=== PATIENT | female | born 1995 | race Caucasian/White ===

== ENCOUNTER 2016-10-28 17:05 | Emergency (ER) | payer MEDICAID ==
[~2016-10-28] VITALS: Ht 167.6 cm; Wt 130.0 kg
[~2016-10-28 17:05] MED LIST: LORTA5 PO
[2016-10-28 17:06] VITALS: BP 160/91; PULSE 87; RESP 14; TEMP 98.1; O2SAT 96
[2016-10-28] MEDS ORDERED: ALPR.5 PO (19:55)
--- NOTE | 2016-10-28 20:12 | PD ---
HPI Chief Complaint: Cold / Flu Symptoms Time Seen by Provider: 19:45 Travel History International Travel<30 days: No Contact w/Intl Traveler<30days: No Traveled to known affect area: No History of Present Illness HPI 21-year-old female presents for evaluation of cough, congestion, sneezing, myalgias and fevers, sore throat. Symptoms started 5 days ago. Maximum temperature 102.5 degrees at home. She has been using [id number] NSAIDs for symptom relief. She denies any abdominal pain, nausea, vomiting, rash, recent travel, dysuria, flank pain. She notes that she did recently complete treatment for urinary tract infection. She reports that her last menstrual period was 2 days ago. She did receive the influenza vaccination this year. No other complaints. PFSH Past Medical History Hx Anticoagulant Therapy: No Cardiovascular Problems: Yes (SVT, ABLATION, BARRERA PARKIN[place] WHITE) Chemotherapy: No Cerebrovascular Accident: No Diabetes: No Diminished Hearing: No Respiratory: No ?: Not : 1 Para: 1 Past Surgical History Section: Yes Gynecologic Surgery: Yes Other Surgery: Yes (ABATION) Social History Alcohol Use: No Tobacco Use: Yes Substance Use: No Allergies-Medications (Allergen,Severity, Reaction): Coded Allergies: Amoxicillin (Verified Allergy, Severe, hives, swelling, 10/28/16) Bactrim (Verified Allergy, Severe, hives, swelling, 10/28/16) Penicillin (Verified Allergy, Severe, hives, swelling, 10/28/16) Uncoded Allergies: Pcn,Bactruim (Allergy, Intermediate, 05/25/15) Reported Meds & Prescriptions Reported Meds & Active Scripts Active Reported Xanax (Alprazolam) 0.5 Mg Tab 0.5 Mg PO Q4H PRN Review of Systems Except as stated in HPI: all other systems reviewed are Neg Physical Exam Narrative GENERAL: Well-developed well-nourished female in no acute distress SKIN: Warm and dry. HEAD: Atraumatic. Normocephalic. EYES: Pupils equal and round. No scleral icterus. No injection or drainage. ENT: No nasal bleeding or discharge. Mucous membranes pink and moist. No oral pharyngeal erythema or exudate. NECK: Trachea midline. No JVD. No Lymphadenopathy. Neck supple full range of motion. CARDIOVASCULAR: Regular rate and rhythm. No murmur appreciated. RESPIRATORY: No accessory muscle use. Clear to auscultation. Breath sounds equal bilaterally. GASTROINTESTINAL: Abdomen soft, non-tender, nondistended. Hepatic and splenic margins not palpable. No CVA tenderness. MUSCULOSKELETAL: No obvious deformities. No edema. NEUROLOGICAL: Awake and alert. No obvious cranial nerve deficits. Motor grossly within normal limits. Normal speech. Data Data Last Documented VS Vital Signs Date Time Temp Pulse Resp B/P Pulse Ox O2 Delivery O2 Flow Rate FiO2 10/28/16 19:54 87 14 96 Room Air 10/28/16 17:06 98.1 160/91 Orders Influenzae A/B Antigen (10/28/16 19:43) Urinalysis - C+S If Indicated (10/28/16 20:02) Chest, Single Ap (10/28/16 ) Group A Rapid Strep Screen (10/28/16 20:02) Ed Urine Pregnancytest Poc (10/28/16 20:02) Strep Culture (Group A) (10/28/16 20:20) Labs Laboratory Tests Test 10/28/16 20:20 Urine Color YELLOW Urine Turbidity HAZY Urine pH 5.5 Urine Specific [place] 1.016 Urine Protein NEG mg/dL Urine Glucose (UA) NEG mg/dL Urine Ketones NEG mg/dL Urine Occult Blood MOD Urine Nitrite NEG Urine Bilirubin NEG Urine Urobilinogen LESS THAN 2.0 MG/DL Urine Leukocyte Esterase MOD Urine RBC 1 /hpf Urine WBC 5 /hpf Urine Squamous Epithelial 5 /hpf Cells Urine Bacteria RARE /hpf Urine Mucus FEW /lpf Microscopic Urinalysis Comment CULT NOT INDICATED MDM Medical Decision Making Medical Screen Exam Complete: Yes Emergency Medical Condition: Yes Medical Record Reviewed: Yes Interpretation(s) Chest x-ray negative, rapid strep screen negative, influenza antigen negative, urine test negative Urinalysis 5 WBCs, 5 squamous cells, 1 RBC Differential Diagnosis Influenza, sinusitis, pharyngitis, infectious mononucleosis, bronchitis, pneumonia Narrative Course 21-year-old female with 5 days of cough, congestion, sneezing, myalgias, fevers and sore throat. Physical examination is very reassuring. She is not toxic in appearance. She does not appear septic. She is not tachycardic, febrile, hypoxic, tachypneic, altered. Abdomen soft and nontender. She does report that she recently completed treatment for urinary tract infection. We will check rapid strep screen, influenza antigen, chest x-ray, urinalysis. The patient's chest x-ray is negative, influenza antigen is negative, rapid strep screen negative, urinalysis negative. The patient appears to have a viral upper respiratory infection. Supportive care recommended. She is stable for discharge. Diagnosis Primary Impression: Upper respiratory infection Qualified Code: J06.9 - Upper respiratory tract infection, unspecified type Departure Forms: Tests/Procedures, Work Release Enter return to work date: Oct 30, 2016 Additional Instructions: Take Tylenol or Motrin for fever. Stay well hydrated and well-nourished. Follow-up with primary care physician as needed. Return for any emergent medical conditions. Med/Other Pt SpecificInfo: No Change to Meds Disposition: 01 DISCHARGE HOME Condition: Stable Benito Martin Oct 28, 2016 20:12
[2016-10-28 20:34] LABS: BACTERIA, URINE RARE /hpf; BLOOD, URINE MOD (NEG); COMMENT (UR) CULT NOT INDICATED; CULTURE IF INDICATED CULT NOT INDICATED; GLUCOSE,URINE NEG (NEG); KETONE, URINE NEG (NEG); MUCUS URINE FEW /lpf (OCC); NITRITE,URINE NEG (NEG); PH, URINE 5.5 (5.0-8.5); SQUAMOUS EPITHELIAL CELL URINE 5 /hpf (0-5); URINE COLOR YELLOW (YELLW/STRAW)
--- NOTE | 2016-10-28 20:43 | RADRPT ---
EXAM DATE/TIME: 10/28/2016 20:30 [facility] COMPARISON: No previous studies available for comparison. INDICATIONS : Cough and fever. MEDICAL HISTORY : None acutely relevant SURGICAL HISTORY : None. ENCOUNTER: Initial ACUITY: 4 - 6 days PAIN SCORE: 7/10 LOCATION: Bilateral upper chest FINDINGS: A single view of the chest demonstrates the lungs to be symmetrically aerated without evidence of mas s, infiltrate or effusion. The cardiomediastinal contours are unremarkable. Osseous structures are intact. CONCLUSION: No evidence of acute cardiopulmonary disease. Caesar Oliver MD on October 28, 2016 at 20:41 Board Certified Radiologist. This report was verified electronically.
== END 2016-10-28 21:11 | disposition home or self-care (01) ==
LOC: NEPB 17:05
DX: J06.9 Acute upper respiratory infection, unspecified (principal); R05 Cough; M79.1 Myalgia; R50.9 Fever, unspecified; Z72.0 Tobacco use; Z86.79 Personal history of other diseases of the circulatory system
CPT/HCPCS: 71010; 81001; 84703; 87081; 87804; 87880; 99283

== ENCOUNTER 2017-05-11 18:08 | Emergency (ER) | payer OTHER, MEDICAID ==
[~2017-05-11] VITALS: Ht 165.1 cm; Wt 130.0 kg
[~2017-05-11 18:08] MED LIST changes: +ALPR.5 PO; -LORTA5 PO
[2017-05-11 18:09] VITALS: BP 146/88; PULSE 94; RESP 24; TEMP 98.2; O2SAT 100
[2017-05-11] MEDS ORDERED: ULTR50TA5 PO (19:53)
--- NOTE | 2017-05-11 19:53 | PD ---
HPI . Back injury Chief Complaint: Back/ Neck Pain or Injury Time Seen by Provider: 19:46 Travel History International Travel<30 days: No Contact w/Intl Traveler<30days: No Traveled to known affect area: No History of Present Illness HPI This patient presents with a chief complaint of an injury to her left low back. She reports a slip and fall 5 days ago. She states that she landed on her left low back. She reports very little pain at that time. However, she started getting sore 4 hours later. She states that her pain has become gradually worse since that time. She states that she now can't sit, stand or walk because of pain. Pain has been unrelieved by Advil. Pain is constant and is rated 9/10. Patient has no associated neurological symptoms such as bowel or bladder incontinence or leg weakness. PFSH Past Medical History Hx Anticoagulant Therapy: No Cardiovascular Problems: Yes (SVT, ABLATION, BARRERA PARKINSON WHITE) Chemotherapy: No Cerebrovascular Accident: No Diabetes: No Diminished Hearing: No Respiratory: No ?: Not LMP: 05/11/17 : 1 Para: 1 Past Surgical History Section: Yes Gynecologic Surgery: Yes Other Surgery: Yes (ABATION) Social History Alcohol Use: No Tobacco Use: Yes Substance Use: No Allergies-Medications (Allergen,Severity, Reaction): Coded Allergies: Amoxicillin (Verified Allergy, Severe, hives, swelling, 05/11/17) Bactrim (Verified Allergy, Severe, hives, swelling, 05/11/17) Penicillin (Verified Allergy, Severe, hives, swelling, 05/11/17) Uncoded Allergies: Pcn,Bactruim (Allergy, Intermediate, 05/25/15) Reported Meds & Prescriptions Reported Meds & Active Scripts Active Reported Aspirin 81 (Aspirin) 81 Mg Tabdr 81 Mg PO DAILY Xanax (Alprazolam) 0.5 Mg Tab 0.5 Mg PO Q4H PRN Review of Systems Except as stated in HPI: all other systems reviewed are Neg Musculoskeletal: Positive: Pain (left low back pain) Physical Exam Narrative GENERAL: Awake and alert and in no acute distress. SKIN: Warm and dry. No bruising, redness or abrasions. HEAD: Atraumatic. Normocephalic. EYES: Pupils equal and round. NECK: Trachea midline. CARDIOVASCULAR: Regular rate and rhythm. RESPIRATORY: No accessory muscle use. MUSCULOSKELETAL: No obvious deformities. No edema. She is tender in the area of the left posterior iliac crest. NEUROLOGICAL: Awake and alert. No obvious cranial nerve deficits. Motor grossly within normal limits. Normal speech. PSYCHIATRIC: Appropriate mood and affect; insight and judgment normal. Data Data Last Documented VS Vital Signs Date Time Temp Pulse Resp B/P Pulse Ox O2 Delivery O2 Flow Rate FiO2 05/11/17 19:57 20 05/11/17 18:09 98.2 94 146/88 100 Room Air Orders Pelvis, Ap Only (Routine) (05/11/17 19:48) MDM Medical Decision Making Medical Screen Exam Complete: Yes Emergency Medical Condition: Yes Differential Diagnosis Differential diagnosis of back trauma includes but is not limited to fracture, sprain or strain, dislocation, contusion Narrative Course This patient presents with an injury to her left low back. This is most likely just a contusion. She was sent here for Workmen's Compensation. I have ordered an x-ray to rule out fracture. pelvic X-ray>>Unremarkable study. The x-ray was independently viewed by me. Diagnosis Primary Impression: Back contusion Qualified Code: S20.222A - Back contusion, left, initial encounter Patient Instructions: Contusion in Adults (DC), General Instructions Additional Instructions: Ice to the area as needed for pain control Med/Other Pt SpecificInfo: Prescription(s) given Disposition: 01 DISCHARGE HOME Condition: Stable Betzaida Marquez MD May 11, 2017 19:53
[2017-05-11] MEDS ORDERED: ASPI-110 PO (19:57)
--- NOTE | 2017-05-11 20:25 | RADRPT ---
EXAM DATE/TIME: 05/11/2017 20:04 [facility] COMPARISON: No previous studies available for comparison. INDICATIONS : Patient fell complains of low back pelvic pain. MEDICAL HISTORY : None. SURGICAL HISTORY : IUD placement ENCOUNTER: Initial ACUITY: 1 week PAIN SCORE: 10/10 LOCATION: Bilateral pelvis FINDINGS: No definite fractures, or dislocations are identified. No definite lytic or sclerotic lesion is seen . The joint spaces are well maintained. IUD is in place. CONCLUSION: Unremarkable study. Jyothi Lo MD on May 11, 2017 at 20:24 Board Certified Radiologist. This report was verified electronically.
== END 2017-05-11 20:51 | disposition home or self-care (01) ==
LOC: NEPD 18:08
DX: S30.0XXA Contusion of lower back and pelvis, initial encounter (principal); I47.1 Supraventricular tachycardia; I45.6 Pre-excitation syndrome; W01.0XXA Fall on same level from slipping, tripping and stumbling without subsequent striking against object, initial encounter; Z79.82 Long term (current) use of aspirin; Z79.899 Other long term (current) drug therapy; Z72.0 Tobacco use; Z88.0 Allergy status to penicillin; Z88.1 Allergy status to other antibiotic agents
CPT/HCPCS: 72170; 99283

== ENCOUNTER 2018-01-13 14:47 | Emergency (ER) | payer MEDICAID ==
[~2018-01-13 14:47] MED LIST changes: +ASPI1TAB57 PO
[2018-01-13 15:45] VITALS: BP 145/83; PULSE 82; RESP 16; TEMP 98.6; O2SAT 99
--- NOTE | 2018-01-13 16:17 | RADRPT ---
EXAM DATE/TIME: 01/13/2018 16:03 [facility] COMPARISON: PELVIS AP ONLY, May 11, 2017, 20:04. INDICATIONS : Coughing, congestion, chest and back pain for 3 weeks MEDICAL HISTORY : None. SURGICAL HISTORY : None. ENCOUNTER: Initial ACUITY: 3 weeks PAIN SCORE: 5/10 LOCATION: Bilateral chest FINDINGS: PA and lateral views of the chest demonstrate the lungs to be symmetrically aerated without evidence of mass, infiltrate or effusion. The cardiomediastinal contours are unremarkable. Osseous structure s are intact. CONCLUSION: 1. No acute cardiopulmonary findings. Juan Gordon MD on January 13, 2018 at 16:14 Board Certified Radiologist. This report was verified electronically.
--- NOTE | 2018-01-13 17:53 | PD ---
HPI Chief Complaint: Cold / Flu Symptoms Time Seen by Provider: 17:51 Travel History International Travel<30 days: No Contact w/Intl Traveler<30days: No Traveled to known affect area: No History of Present Illness HPI 22y female presents to the ED for concerns of a cough, congestion, fever, and back pain that started 2 weeks ago. Says she was treated with a "Z-Lanre and prednisone" and felt better but has had a lingering cough since then. States that she did see her primary care physician for this who treated ehr. Says she had a fever of 100 yesterday which was well-controlled with Tylenol. Denies nausea, vomiting, diarrhea. Denies chest pain, SOB, abdominal pain. Denies recent travel, history of clots, recent surgeries, hemoptysis, OCP use. Denies chronic medical issues or medication use. PFSH Past Medical History Hx Anticoagulant Therapy: No Heart Rhythm Problems: Yes ([place] 09/21/15) Cardiovascular Problems: Yes (WPW) Chemotherapy: No Cerebrovascular Accident: No Diabetes: No Diminished Hearing: No Respiratory: No ?: Not : 1 Para: 1 Past Surgical History Cardiac Surgery: Yes (Ablation 10/10) Section: Yes (2014) Gynecologic Surgery: Yes Other Surgery: Yes (ABATION) Social History Alcohol Use: No Tobacco Use: No Substance Use: No Allergies-Medications (Allergen,Severity, Reaction): Coded Allergies: amoxicillin (Unverified Allergy, Severe, hives, swelling, 01/13/18) penicillin G (Unverified Allergy, Severe, hives, swelling, 01/13/18) sulfamethoxazole (Unverified Allergy, Severe, hives, swelling, 01/13/18) trimethoprim (Unverified Allergy, Severe, hives, swelling, 01/13/18) Uncoded Allergies: Pcn,Bactruim (Allergy, Intermediate, 05/25/15) Reported Meds & Prescriptions Reported Meds & Active Scripts Active Tessalon Perles (Benzonatate) 100 Mg Cap 100 Mg PO TID PRN 5 Days Reported Aspirin 81 (Aspirin) 81 Mg Tabdr 81 Mg PO DAILY Xanax (Alprazolam) 0.5 Mg Tab 0.5 Mg PO Q4H PRN Review of Systems Except as stated in HPI: all other systems reviewed are Neg Physical Exam Narrative GENERAL: Well-nourished, well-developed patient. SKIN: Focused skin assessment warm/dry. HEAD: Normocephalic. EYES: No scleral icterus. No injection or drainage. NECK: Supple, trachea midline. No JVD or lymphadenopathy. CARDIOVASCULAR: Regular rate and rhythm without murmurs, gallops, or rubs. RESPIRATORY: Breath sounds equal bilaterally. No accessory muscle use. GASTROINTESTINAL: Abdomen soft, non-tender, nondistended. MUSCULOSKELETAL: No cyanosis, or edema. no CVAT Left posterior chest wall-TTP to musculature. BACK: Nontender without obvious deformity. No CVA tenderness. Data Data Last Documented VS Vital Signs Date Time Temp Pulse Resp B/P (MAP) Pulse Ox O2 Delivery O2 Flow Rate FiO2 01/13/18 15:45 98.6 82 16 145/83 (103) 99 Orders Orders Chest, Pa & Lat (01/13/18 ) Ed Discharge Order (01/13/18 18:02) [facility] Medical Decision Making Medical Screen Exam Complete: Yes Emergency Medical Condition: Yes Differential Diagnosis Bronchitis, pneumonia, influenza Narrative Course 22-year-old female presents emergency department for evaluation of her cough, congestion there is malingering proximally 2 weeks. Patient states that she was treated with azithromycin and prednisone and had good relief however, her cough has been lingering. Says she is concerned that she is persistent pneumonia. Vital signs are stable, afebrile Chest x-ray clear. Physical exam findings essentially unremarkable except for tenderness palpation of the left posterior chest wall, reproducing her back pain. I explained To the patient that her symptoms are likely result of the cough congestion that she had previously and that she may also have had a viral infection which is the likely cause of her cough. We will prescribe Tessalon Perles for her cough. Advised to return to emergency room for worsening or persistent symptoms. Follow with the primary care physician for further treatment and evaluation Diagnosis Primary Impression: Bronchitis Referrals: Primary Care Physician Additional Instructions: Follow-up with a primary care physician as discussed. Continue Tylenol or Motrin per package instructions. Take all medications as prescribed. If her symptoms persist or worsen return to the emergency department. Scripts Benzonatate (Tessalon Perles) 100 Mg Cap 100 MG PO TID Y for COUGH for 5 Days, CAP 0 Refills Prov: Gianna Alvarado 01/13/18 Disposition: 01 DISCHARGE HOME Condition: Stable Gianna Alvarado Jan 13, 2018 17:53
[2018-01-13] MEDS ORDERED: BENZ100 PO (17:59)
== END 2018-01-13 18:19 | disposition home or self-care (01) ==
LOC: NED 14:47 → NEPA 18:19
DX: J40 Bronchitis, not specified as acute or chronic (principal)
CPT/HCPCS: 71046; 99283